=== PATIENT | female | born 1975 | race Hispanic/Latino ===

== ENCOUNTER 2023-12-05 13:52 | Emergency (ER) | payer BC ==
[~2023-12-05] VITALS: Ht 160 cm; Wt 98.0 kg
[~2023-12-05 13:52] MED LIST: LISINOPRIL-HCT1 EAC1 PO; METFORMIN HCL500 MG PO
[2023-12-05] MEDS ORDERED: MECLIZINE HCL12.5 MG PO (14:14)
[2023-12-05] MEDS: MECLIZINE HCL 12.5 MG TAB PO ONE (14:15)
[2023-12-05] MEDS: ONDANSETRON HCL 4 MG ORAL DISINTEGRATING TAB PO ONE (14:15)
[2023-12-05 14:56] VITALS: PULSE 70; RESP 18; TEMP 97.4; O2SAT 98
[2023-12-05] MEDS ORDERED: BENICAR HCT 401 EAC1 (20:51)
[2023-12-05] MEDS ORDERED: FARXIGA10 MG (20:51)
[2023-12-05] MEDS ORDERED: GLIMEPIRIDE2 MG PO (20:51)
[2023-12-05] MEDS ORDERED: METFORMIN HCL500 M2 PO (20:51)
[2023-12-05] MEDS ORDERED: AMLODIPINE BESY10 MG PO (20:51)
== END 2023-12-05 14:56 | disposition home or self-care (01) ==
LOC: FSED 14:06
DX: H81.10 Benign paroxysmal vertigo, unspecified ear (principal); I10 Essential (primary) hypertension; E11.9 Type 2 diabetes mellitus without complications
CPT/HCPCS: 99283; J8597; Q0162